=== PATIENT | male | born 1955 | race Caucasian/White ===

== ENCOUNTER 2017-01-31 17:27 | Emergency (ER) | payer MEDICARE, SELFPAY ==
[2017-01-31] MEDS ORDERED: MVI, Adult with Vitamin K 10 ML, Folic Acid 1 MG, Thiamine 100 MG in Lactated Ringers 1... IV ONE ×4 (17:29)
[2017-01-31 17:31] VITALS: BP 122/70
--- NOTE | 2017-01-31 17:32 | EDM.PDOC ---
ED HPI GENERAL MEDICAL PROBLEM - General Chief Complaint: General Stated Complaint: COMING BY AMBULANCE Time Seen by Provider: 01/31/17 17:27 Source of Information: Reports: Patient, EMS, EMS Notes Reviewed History Limitations: Reports: Intoxication - History of Present Illness INITIAL COMMENTS - FREE TEXT/NARRATIVE: 61 yo white male brought in by ambulance found lying on concrete in front of house intoxicated. No Trauma Onset: Today Onset Date: 01/31/17 Onset Time: 17:00 Duration: Hour(s): Location: Reports: Generalized Severity: Moderate Improves with: Reports: None Worsens with: Reports: None Context: Reports: Other (intoxicated) Associated Symptoms: Reports: No Other Symptoms - Related Data Allergies Allergy/AdvReac Type Severity Reaction Status Date / Time No Known Allergies Allergy Verified 01/31/17 17:27 Home Meds: Home Meds ARIPiprazole [Abilify] 30 mg PO DAILY 09/11/14 [History] Venlafaxine [Effexor XR] 150 mg PO DAILY 09/11/14 [History] atorvaSTATin [Lipitor] 10 mg PO BEDTIME 09/11/14 [History] buPROPion HCl [Bupropion Xl] 300 mg PO DAILY 09/11/14 [History] clonazePAM [Klonopin] 1 mg PO DAILY 09/11/14 [History] traZODone 50 mg PO ONETIME 09/11/14 [History] Social & Family History - Tobacco Use Smoking Status *Q: Former Smoker Years of Tobacco use: 30 - Alcohol Use Days Per Week of Alcohol Use: 0 - Recreational Drug Use Recreational Drug Use: No ED ROS GENERAL - Review of Systems Review Of Systems: See Below Constitutional: Reports: No Symptoms HEENT: Reports: No Symptoms Respiratory: Reports: No Symptoms Cardiovascular: Reports: No Symptoms Endocrine: Reports: No Symptoms GI/Abdominal: Reports: No Symptoms : Reports: No Symptoms Musculoskeletal: Reports: No Symptoms Skin: Reports: No Symptoms Neurological: Reports: No Symptoms Psychiatric: Reports: Other (intoxicated w/ ETOH) Hematologic/Lymphatic: Reports: No Symptoms Immunologic: Reports: No Symptoms ED EXAM, GENERAL - Physical Exam Exam: See Below Exam Limited By: Intoxication General Appearance: Alert, No Apparent Distress Eye Exam: Bilateral Eye: PERRL Ears: Normal External Exam Nose: Normal Inspection Throat/Mouth: Normal Inspection, Normal Lips Head: Atraumatic, Normocephalic Neck: Normal Inspection, Supple Respiratory/Chest: No Respiratory Distress, Lungs Clear Cardiovascular: Normal Peripheral Pulses, Regular Rate, Rhythm Peripheral Pulses: 2+: Brachial (L), Brachial (R), Dorsalis Pedis (L), Dorsalis Pedis (R) GI/Abdominal: Normal Bowel Sounds, Soft (Male) Exam: No Hernia Back Exam: Normal Inspection Extremities: Normal Inspection, Normal Range of Motion Neurological: Alert, Oriented Psychiatric: Other (intox) Skin Exam: Warm Lymphatic: No Adenopathy Course - Vital Signs Last Recorded V/S: Last Vital Signs Temp 35.9 C 01/31/17 17:28 Pulse 64 01/31/17 17:28 Resp 16 01/31/17 17:28 BP 122/70 01/31/17 17:28 Pulse Ox 94 L 01/31/17 17:28 - Orders/Labs/Meds Orders: Active Orders 24 hr Category Date Time Status EKG 12 Lead [EKG Documentation Completion] [RC] STAT Care 01/31/17 17:36 Active Labs: Laboratory Tests 01/31/17 01/31/17 01/31/17 Range/Units 17:38 17:38 17:50 WBC 6.0 (5.0-10.0) 10^3/uL RBC 4.73 (4.6-6.2) 10^6/uL Hgb 15.0 (14.0-18.0) g/dL Hct 44.8 (40.0-54.0) % MCV 94.7 (80-100) fL MCH 31.7 (27.0-34.0) pg MCHC 33.5 (33.0-35.0) g/dL Plt Count 184 (150-450) 10^3/uL Neut % (Auto) 51.9 (42.2-75.2) % Lymph % (Auto) 40.1 (20.5-50.1) % Larue % (Auto) 5.7 (2-8) % Eos % (Auto) 2.0 (1.0-3.0) % Baso % (Auto) 0.3 (0.0-1.0) % Sodium 138 (135-145) mmol/L Potassium 4.4 (3.6-5.0) mmol/L Chloride 101 (101-111) mmol/L Carbon Dioxide 26.0 (21.0-31.0) mmol/L Anion Gap 15.4 BUN 11 (7-18) mg/dL Creatinine 0.8 (0.6-1.3) mg/dL Est Cr Clr Drug Dosing 92.17 mL/min Estimated GFR (MDRD) > 60 BUN/Creatinine Ratio 13.75 Glucose 103 (74-105) mg/dL Calcium 9.2 (8.4-10.2) mg/dl Total Bilirubin 0.6 (0.2-1.0) mg/dL AST 38 (10-42) IU/L ALT 42 (10-60) IU/L Alkaline Phosphatase 50 (42-121) IU/L Total Protein 7.6 (6.7-8.2) g/dl Albumin 4.6 (3.2-5.5) g/dl Globulin 3.0 Albumin/Globulin Ratio 1.53 Urine Color Light yellow (YELLOW) Urine Appearance Clear (CLEAR) Urine pH 6.5 (5.0-9.0) Ur Specific [place] <= 1.005 (1.005-1.030) Urine Protein Negative (NEGATIVE) Urine Glucose (UA) Negative (NEGATIVE) Urine Ketones Negative (NEGATIVE) Urine Occult Blood Negative (NEGATIVE) Urine Nitrite Negative (NEGATIVE) Urine Bilirubin Negative (NEGATIVE) Urine Urobilinogen 0.2 (0.2-1.0) mg/dL Ur Leukocyte Esterase Negative (NEGATIVE) Urine RBC 0-5 /HPF Urine WBC 0-5 (0-5/HPF) /HPF Ur Epithelial Cells Rare /HPF Urine Bacteria Not seen (0-FEW/HPF) /HPF Urine Opiates Screen (NEGATIVE) Ur Oxycodone Screen (NEGATIVE) Urine Methadone Screen (NEGATIVE) Ur Barbiturates Screen (NEGATIVE) U Tricyclic Antidepress (NEGATIVE) Ur Phencyclidine Scrn (NEGATIVE) Ur Amphetamine Screen (NEGATIVE) U Methamphetamines Scrn (NEGATIVE) Urine MDMA Screen (NEGATIVE) U Benzodiazepines Scrn (NEGATIVE) Urine Cocaine Screen (NEGATIVE) U Marijuana (THC) Screen (NEGATIVE) Ethyl Alcohol 338 mg/dL 01/31/17 Range/Units 17:50 WBC (5.0-10.0) 10^3/uL RBC (4.6-6.2) 10^6/uL Hgb (14.0-18.0) g/dL Hct (40.0-54.0) % MCV (80-100) fL MCH (27.0-34.0) pg MCHC (33.0-35.0) g/dL Plt Count (150-450) 10^3/uL Neut % (Auto) (42.2-75.2) % Lymph % (Auto) (20.5-50.1) % Larue % (Auto) (2-8) % Eos % (Auto) (1.0-3.0) % Baso % (Auto) (0.0-1.0) % Sodium (135-145) mmol/L Potassium (3.6-5.0) mmol/L Chloride (101-111) mmol/L Carbon Dioxide (21.0-31.0) mmol/L Anion Gap BUN (7-18) mg/dL Creatinine (0.6-1.3) mg/dL Est Cr Clr Drug Dosing mL/min Estimated GFR (MDRD) BUN/Creatinine Ratio Glucose (74-105) mg/dL Calcium (8.4-10.2) mg/dl Total Bilirubin (0.2-1.0) mg/dL AST (10-42) IU/L ALT (10-60) IU/L Alkaline Phosphatase (42-121) IU/L Total Protein (6.7-8.2) g/dl Albumin (3.2-5.5) g/dl Globulin Albumin/Globulin Ratio Urine Color (YELLOW) Urine Appearance (CLEAR) Urine pH (5.0-9.0) Ur Specific [place] (1.005-1.030) Urine Protein (NEGATIVE) Urine Glucose (UA) (NEGATIVE) Urine Ketones (NEGATIVE) Urine Occult Blood (NEGATIVE) Urine Nitrite (NEGATIVE) Urine Bilirubin (NEGATIVE) Urine Urobilinogen (0.2-1.0) mg/dL Ur Leukocyte Esterase (NEGATIVE) Urine RBC /HPF Urine WBC (0-5/HPF) /HPF Ur Epithelial Cells /HPF Urine Bacteria (0-FEW/HPF) /HPF Urine Opiates Screen Negative (NEGATIVE) Ur Oxycodone Screen Negative (NEGATIVE) Urine Methadone Screen Negative (NEGATIVE) Ur Barbiturates Screen Negative (NEGATIVE) U Tricyclic Antidepress Negative (NEGATIVE) Ur Phencyclidine Scrn Negative (NEGATIVE) Ur Amphetamine Screen Negative (NEGATIVE) U Methamphetamines Scrn Negative (NEGATIVE) Urine MDMA Screen Negative (NEGATIVE) U Benzodiazepines Scrn Negative (NEGATIVE) Urine Cocaine Screen Negative (NEGATIVE) U Marijuana (THC) Screen Negative (NEGATIVE) Ethyl Alcohol mg/dL Meds: Medications Discontinued Medications Generic Name Dose Route Start Last Admin Trade Name Michael PRN Reason Stop Dose Admin Multivitamins/Minerals 10 ml/ 1,011.2 mls @ 999 mls/hr 01/31/17 17:29 17:55 Folic Acid 1 mg/ Thiamine HCl IV 01/31/17 18:29 999 mls/hr 100 mg/ Lactated Ringer's ONETIME ONE Administration Departure - Departure Time of Disposition: 18:36 Disposition: Home, Self-Care 01 Condition: Good Clinical Impression: Alcohol abuse - Discharge Information Forms: ED Department Discharge Additional Instructions: Stop Alcohol Use Take Daily Multivitamin Increase intake fruits and vegetables F/U w/ PCP - My Orders Last 24 Hours: My Active Orders 01/31/17 17:36 EKG 12 Lead [EKG Documentation Completion] [RC] STAT - Assessment/Plan Last 24 Hours: My Active Orders 01/31/17 17:36 EKG 12 Lead [EKG Documentation Completion] [RC] STAT
[2017-01-31 18:09] LABS: CHLORIDE,CL 101 mmol/L (101-111); SODIUM,NA 138 mmol/L (135-145)
--- NOTE | 2017-02-03 09:42 | EKG ---
01/31/2017 - NEHEMIAH HIRSCH I reviewed the EKG and agree with the machine reading. [facility] /[id number]
== END 2017-01-31 19:39 ==
LOC: DL.ED 17:27
DX: F10.120 Alcohol abuse with intoxication, uncomplicated (principal); Z79.899 Other long term (current) drug therapy; Z87.891 Personal history of nicotine dependence
CPT/HCPCS: 36415; 71010; 80053; 80305; 81001; 85025; 93005; 96365; 99285; G0480; J3411; J7120; 93010; 99284; J3490

== ENCOUNTER 2020-02-04 10:29 | Emergency (ER) | payer OTHER, MEDICARE ==
--- NOTE | 2020-02-04 10:39 | EDM.PDOC ---
ED HPI GENERAL MEDICAL PROBLEM - General Chief Complaint: Head Injury Stated Complaint: FELL OFF A TABLE AND HIT HEAD Time Seen by Provider: 02/04/20 10:38 Source of Information: Reports: Patient, Old Records, RN, RN Notes Reviewed History Limitations: Reports: No Limitations - History of Present Illness INITIAL COMMENTS - FREE TEXT/NARRATIVE: Pt presents to ER from work by POV with c/o head injury. He was standing on a table cleaning vents when the table flipped over. He states he hit the back of his head. Denies LOC, N/V, visual changes, or any drainage of bloody or clear fluid from the nose or ears. aaox3. no loc. He admits to some minor soreness in the muscles of the left side of his neck and upper shoulder. He also has a superficial scrape to the left wrist. Pt rates the head pain 3/10. No past Hx of head injury or concussion. Pt denies use of Aspirin or blood thinners. Onset: Today, Sudden Duration: Improving Location: Reports: Head Quality: Reports: Ache Severity: Moderate Improves with: Reports: None Worsens with: Reports: None Associated Symptoms: Reports: No Other Symptoms Head Pain Score (Numeric/FACES): 3 - Related Data Allergies Allergy/AdvReac Type Severity Reaction Status Date / Time No Known Allergies Allergy Verified 10/02/17 05:52 Home Meds: Home Meds ARIPiprazole [Abilify] 30 mg PO BEDTIME 09/11/14 [History] Venlafaxine [Effexor XR] 300 mg PO DAILY 09/11/14 [History] atorvaSTATin [Lipitor] 10 mg PO BEDTIME 09/11/14 [History] buPROPion HCL [Bupropion Xl] 300 mg PO DAILY 09/11/14 [History] clonazePAM [Klonopin] 0.5 mg PO BEDTIME 09/11/14 [History] traZODone 100 mg PO BEDTIME 09/11/14 [History] Lisinopril 1 tab PO ASDIRECTED 10/01/17 [History] Multivitamin with Minerals [Multiple Vitamin] 1 tab PO DAILY 10/01/17 [History] Vitamin B Complex [B Complex] 1 tab PO DAILY 10/01/17 [History] Past Medical History HEENT History: Reports: None Cardiovascular History: Reports: High Cholesterol Respiratory History: Reports: Sleep Apnea Gastrointestinal History: Reports: None Genitourinary History: Reports: None Musculoskeletal History: Reports: Arthritis Neurological History: Reports: None Psychiatric History: Reports: Addiction, Depression, Psychosis, Other (See Below) Other Psychiatric History: MOOD DISORDER, PSYCHOSIS Endocrine/Metabolic History: Reports: Diabetes, Type II, Obesity/BMI 30+ Hematologic History: Reports: None Immunologic History: Reports: None Oncologic (Cancer) History: Reports: None Dermatologic History: Reports: Cellulitis - Infectious Disease History Infectious Disease History: Reports: Chicken Pox, Measles, Mumps, Shingles - Past Surgical History Head Surgeries/Procedures: Reports: None HEENT Surgical History: Reports: None Cardiovascular Surgical History: Reports: None Respiratory Surgical History: Reports: None GI Surgical History: Reports: Hernia Repair/Other Male Surgical History: Reports: None Endocrine Surgical History: Reports: None Musculoskeletal Surgical History: Reports: None Social & Family History - Family History Family Medical History: Noncontributory - Caffeine Use Caffeine Use: Reports: Coffee, Soda Other Caffeine Use: 32 OZ COFFEE DAILY. OCCASIONAL SODA - Living Situation & Occupation Occupation: Employed ED ROS GENERAL - Review of Systems Review Of Systems: Comprehensive ROS is negative, except as noted in HPI. ED EXAM, HEAD INJURY - Physical Exam Exam: See Below Exam Limited By: No Limitations General Appearance: Alert, WD/WN, No Apparent Distress Head: Normocephalic, Scalp Tenderness (with 2.75cm vicki. contusion at mid- occipital scalp, skin is intact.) Nexus Criteria: No: Posterior, Midline Cervical Tenderness, Evidence of Intoxication, Altered Level of Consciousness, Focal Neurological Deficit, Painful Distraction Injuries Eyes: Bilateral Eye: EOMI, Normal Inspection, PERRL Ears: Normal External Exam, Normal Canal, Hearing Grossly Normal, Normal TMs (No hemotympanum) Nose: Normal Inspection, Normal Mucousa, No Blood. No: Nasal Discharge, Active Bleeding, Dried Blood Throat/Mouth: Normal Inspection, Normal Lips, Normal Teeth, Normal Gums, Normal Voice, No Airway Compromise Neck: Full Range of Motion, Normal Alignment, Normal Inspection, Paraspinous Muscle Tender (Left only). No: Spinous Processes Tender, Tender Midline Respiratory: No Respiratory Distress, Lungs Clear, Normal Breath Sounds, No Accessory Muscle Use, Chest Non-Tender Cardiovascular: Normal Peripheral Pulses, Regular Rate, Rhythm, No Edema, No Gallop, No JVD, No Murmur, No Rub Back Exam: Normal Inspection, Full Range of Motion. No: CVA Tenderness (L), CVA Tenderness (R), Decreased Range of Motion, Paraspinal Tenderness, Vertebral Tenderness Extremities: Normal Range of Motion, Non-Tender, No Pedal Edema, Normal Capillary Refill Neurologic: practice manager II-XII nml As Tested, No Motor/Sensory Deficits, Alert, Normal Mood/Affect, Oriented x 3 Skin: Normal Color, Warm/Dry, Other (Minor superficial abrasion to left wrist) - [place] Coma Score Best Eye Response (Armando): (4) Open Spontaneously Best Verbal Response (Armando): (5) Oriented Best Motor Response (Armando): (6) Obeys Commands [place] Total: 15 Course - Vital Signs Last Recorded V/S: Last Vital Signs Temp 98.5 F 02/04/20 10:41 Pulse 79 02/04/20 10:41 Resp 18 02/04/20 10:41 BP 145/56 H 02/04/20 10:41 Pulse Ox 99 02/04/20 10:41 - Radiology Interpretation Free Text/Narrative:: [facility] Final Radiology Report Call: [phone] assistance Online chat: [email or web address] Identity Governance Name: NEHEMIAH HIRSCH Age: 64Years M Date: 02/04/2020 SSN: -- : [id number] Study: CT HEAD WO CONT Requesting Physician: MARLA ALMANZA Images: 153 Addl Studies: Provided Clinical History: Head injury, fell 3ft onto concrete hit occiput Contrast: Without Contrast Medium: Contrast Amount: Contrast Method: Page 1 of 2 PROCEDURE INFORMATION: Exam: CT Head Without Contrast Exam date and time: 02/04/2020 10:52 AM Age: 64 years old Clinical indication: Injury or trauma; Fall; Blunt trauma (contusions or hematomas); Without loss of consciousness; Additional info: Head injury, fell 3ft onto concrete hit occiput TECHNIQUE: Imaging protocol: Computed tomography of the head without contrast. Radiation optimization: All CT scans at this facility use at least one of these dose optimization techniques: automated exposure control; mA and/or kV adjustment per patient size (includes targeted exams where dose is matched to clinical indication); or iterative reconstruction. COMPARISON: No relevant prior studies available. FINDINGS: Brain: Normal. No hemorrhage. Unremarkable white matter. No mass effect. Cerebral ventricles: No ventriculomegaly. Bones/joints: Unremarkable. No acute fracture. Paranasal sinuses: Visualized sinuses are unremarkable. No fluid levels. Mastoid air cells: Visualized mastoid air cells are well aerated. Soft tissues: Unremarkable. IMPRESSION: No acute intracranial abnormality. Thank you for allowing us to participate in the care of your patient. Dictated and Authenticated by: Dionte Rivas MD Departure - Departure Time of Disposition: 11:08 Disposition: Home, Self-Care 01 Condition: Good Clinical Impression: Abrasion of left wrist, initial encounter, Fall from mobile elevated work platform as cause of accidental injury Minor head injury without loss of consciousness Qualifiers: Encounter type: initial encounter Qualified Code(s): S09.90XA - Unspecified injury of head, initial encounter Neck muscle strain Qualifiers: Encounter type: initial encounter Qualified Code(s): S16.1XXA - Strain of muscle, fascia and tendon at neck level, initial encounter - Discharge Information *PRESCRIPTION DRUG MONITORING PROGRAM REVIEWED*: Not Applicable *COPY OF PRESCRIPTION DRUG MONITORING REPORT IN PATIENT ZAIDA: Not Applicable Instructions: Facial or Scalp Contusion, [id number], Head Injury, Adult, [id number] Forms: ED Department Discharge Additional Instructions: Rest today. Then activity as tolerated. Avoid strenuous activity and maximal physical exertion, bouncing, jarring, or contact sports for 2 weeks. May use over the counter Ibuprofen 200mg, take 4 tablets (800mg) by mouth up to 3 times a day as needed for headache or pain. Take with food. Follow up in clinic if any further problems. Sepsis Event Note (ED) - Focused Exam Vital Signs: Vital Signs Temp Pulse Resp BP Pulse Ox 02/04/20 10:41 98.5 F 79 18 145/56 H 99
[2020-02-04 10:44] VITALS: BP 145/56; PULSE 79
--- NOTE | 2020-02-04 11:06 | CT ---
PROCEDURE INFORMATION: Exam: CT Head Without Contrast Exam date and time: 02/04/2020 10:52 AM Age: 64 years old Clinical indication: Injury or trauma; Fall; Blunt trauma (contusions or hematomas); Without loss of consciousness; Additional info: Head injury, fell 3ft onto concrete hit occiput TECHNIQUE: Imaging protocol: Computed tomography of the head without contrast. Radiation optimization: All CT scans at this facility use at least one of these dose optimization techniques: automated exposure control; mA and/or kV adjustment per patient size (includes targeted exams where dose is matched to clinical indication); or iterative reconstruction. COMPARISON: No relevant prior studies available. FINDINGS: Brain: Normal. No hemorrhage. Unremarkable white matter. No mass effect. Cerebral ventricles: No ventriculomegaly. Bones/joints: Unremarkable. No acute fracture. Paranasal sinuses: Visualized sinuses are unremarkable. No fluid levels. Mastoid air cells: Visualized mastoid air cells are well aerated. Soft tissues: Unremarkable. IMPRESSION: No acute intracranial abnormality.
== END 2020-02-04 11:11 | disposition home or self-care (01) ==
LOC: DL.ED 10:29
DX: S16.1XXA Strain of muscle, fascia and tendon at neck level, initial encounter (principal); S00.03XA Contusion of scalp, initial encounter; S60.812A Abrasion of left wrist, initial encounter; E78.00 Pure hypercholesterolemia, unspecified; F32.9 Major depressive disorder, single episode, unspecified; E11.9 Type 2 diabetes mellitus without complications; E66.9 Obesity, unspecified; Z68.33 Body mass index [BMI] 33.0-33.9, adult; W08.XXXA Fall from other furniture, initial encounter; Y99.0 Civilian activity done for income or pay
CPT/HCPCS: 70450; 99283; 99283-25

== ENCOUNTER 2023-03-31 13:19 | Emergency (ER) | payer MEDICARE, OTHER ==
[2023-03-31] MEDS ORDERED: Lidocaine 1% with EPINEPHrine 1:100,000 20 ML MDV INJECT ONE (14:21)
[2023-03-31] MEDS ORDERED: Diphtheria,Pertussis(Acell),Tetanus Vaccine 0.5 ML Syringe IM ONE (14:24)
[2023-03-31 14:31] VITALS: BP 149/86; PULSE 97
[2023-03-31] MEDS ORDERED: Bacitracin Oint 1 GM U/D Packet TOP ONE (14:50)
== END 2023-03-31 14:56 | disposition home or self-care (01) ==
LOC: DL.ED 13:19
DX: S01.81XA Laceration without foreign body of other part of head, initial encounter (principal); E11.9 Type 2 diabetes mellitus without complications; E66.9 Obesity, unspecified; E78.00 Pure hypercholesterolemia, unspecified; Z79.899 Other long term (current) drug therapy; W01.110A Fall on same level from slipping, tripping and stumbling with subsequent striking against sharp glass, initial encounter
CPT/HCPCS: 12011; 73030; 90471; 90715; 99283; A9270; J3490

== ENCOUNTER 2024-11-01 16:08 | Emergency (ER) | payer MEDICARE, OTHER ==
[2024-11-01 16:16] VITALS: BP 160/79; PULSE 77
[2024-11-01] MEDS: Diphtheria,Pertussis(Acell),Tetanus Vaccine 0.5 ML Syringe IM ONE (17:03)
== END 2024-11-01 17:10 | disposition home or self-care (01) ==
LOC: DL.ED 16:08
DX: S01.81XA Laceration without foreign body of other part of head, initial encounter (principal); E78.00 Pure hypercholesterolemia, unspecified; E11.9 Type 2 diabetes mellitus without complications; Z79.899 Other long term (current) drug therapy; Z23 Encounter for immunization; W26.8XXA Contact with other sharp object(s), not elsewhere classified, initial encounter; Y93.89 Activity, other specified
CPT/HCPCS: 12011; 90471; 90715; 99282-25